=== PATIENT | female | born 1980 | race Caucasian/White ===

== ENCOUNTER 2016-08-16 17:21 | Emergency (ER) | payer OTHER ==
[~2016-08-16] VITALS: Ht 149.9 cm; Wt 68.2 kg
[~2016-08-16 17:21] MED LIST: CITA10TA9 PO
[2016-08-16 17:26] VITALS: BP 136/82; PULSE 74; RESP 16; O2SAT 98
== END 2016-08-16 19:04 | disposition left against medical advice (07) ==
LOC: SED 17:21
DX: R51 Headache (principal)